=== PATIENT | female | born 2000 | race Caucasian/White ===

== ENCOUNTER 2021-05-20 13:13 | Inpatient (IN) | payer OTHER ==
[~2021-05-20] VITALS: Ht 157.5 cm; Wt 71.2 kg
== END 2021-05-22 11:56 | disposition home or self-care (01) | DRG 807 ==
LOC: OBS/DEL 13:13 → LDR 15:18 → OB/GYN 05-21 00:03
PROVIDERS: ADMIT Student in an Organized Health Care Education/Training Program; ATTEND Student in an Organized Health Care Education/Training Program
PROC: 10E0XZZ Delivery of Products of Conception, External Approach (ICD-10-PCS; principal; 2021-05-20)
PROC: 10907ZC Drainage of Amniotic Fluid, Therapeutic from Products of Conception, Via Natural or Artificial Opening (ICD-10-PCS; 2021-05-20)
PROC: 4A1HXFZ Monitoring of Products of Conception, Cardiac Rhythm, External Approach (ICD-10-PCS; 2021-05-20)
DX: O80 Encounter for full-term uncomplicated delivery (principal); Z37.0 Single live birth; Z3A.38 38 weeks gestation of pregnancy

== ENCOUNTER 2023-04-02 15:07 | Outpatient (CLI) | payer OTHER | END 2023-04-02 17:08 | disposition home or self-care (01) | LOC: PRENATAL 15:07 | PROVIDERS: ATTEND Obstetrics & Gynecology Maternal & Fetal Medicine | DX: O36.80X0 Pregnancy with inconclusive fetal viability, not applicable or unspecified (principal); Z36.82 Encounter for antenatal screening for nuchal translucency; Z36.9 Encounter for antenatal screening, unspecified; Z3A.13 13 weeks gestation of pregnancy ==

== ENCOUNTER 2023-05-29 10:30 | Outpatient (CLI) | payer OTHER | END 2023-05-29 10:31 | disposition home or self-care (01) | LOC: PRENATAL 10:30 | PROVIDERS: ATTEND Obstetrics & Gynecology Maternal & Fetal Medicine | DX: O35.3XX0 Maternal care for (suspected) damage to fetus from viral disease in mother, not applicable or unspecified (principal); O35.9XX0 Maternal care for (suspected) fetal abnormality and damage, unspecified, not applicable or unspecified; O44.00 Complete placenta previa NOS or without hemorrhage, unspecified trimester; Z3A.21 21 weeks gestation of pregnancy ==

== ENCOUNTER 2023-07-18 10:18 | Outpatient (CLI) | payer OTHER | END 2023-07-18 10:20 | disposition home or self-care (01) | LOC: PRENATAL 10:18 | PROVIDERS: ATTEND Obstetrics & Gynecology Maternal & Fetal Medicine | DX: O26.849 Uterine size-date discrepancy, unspecified trimester (principal); O43.90 Unspecified placental disorder, unspecified trimester; Z3A.28 28 weeks gestation of pregnancy ==

== ENCOUNTER 2023-08-28 10:36 | Outpatient (CLI) | payer OTHER | END 2023-08-28 10:37 | disposition home or self-care (01) | LOC: PRENATAL 10:36 | PROVIDERS: ATTEND Obstetrics & Gynecology Maternal & Fetal Medicine | DX: O26.849 Uterine size-date discrepancy, unspecified trimester (principal); O43.90 Unspecified placental disorder, unspecified trimester; Z3A.34 34 weeks gestation of pregnancy ==

== ENCOUNTER 2023-09-20 07:13 | Inpatient (IN) | payer OTHER ==
[~2023-09-20] VITALS: Ht 157.5 cm; Wt 62.1 kg
[2023-09-20] MEDS ORDERED: AMPICILLIN SODIUM 2,000 MG VIAL ONE (07:28)
[2023-09-20] MEDS ORDERED: AMPICILLIN SODIUM 2,000 MG in 0.9 % SODIUM CHLORIDE 100 ML IV SCH ×2 (08:28→14:00)
[2023-09-20] MEDS ORDERED: RINGERS SOLUTION,LACTATED 1,000 ML IV SCH ×2 (08:30→17:15)
[2023-09-20 08:41] LABS: HEMATOCRIT 35.1 % (36.0-45.00); HEMOGLOBIN 12.3 g/dL (12.0-15.00); MEAN CELL VOLUME 87.7 fL (80.00-100.00); MEAN CORPUSCULAR HEMOGLOBIN 30.7 pg (27.00-32.0); PLATELET COUNT 178 K/uL (150-450); RED CELL DISTRIBUTION WIDTH 14.4 % (11.5-14.5)
[2023-09-20 08:50] LABS: PH,URINE 6.5 (5.0-8.0); URINE APPEARANCE Clear; URINE BILIRRUBIN Negative (NEGATIVE); URINE BLOOD Negative; URINE COLOR Yellow; URINE GLUCOSE Negative (NEGATIVE); URINE LEUKOCYTE Negative; URINE NITRATE Negative; URINE PROTEIN Negative (NEGATIVE)
[2023-09-20 08:55] LABS: URINE BACTERIA 458.4 uL (0.0-1933); URINE EPITHELIAL CELLS 27.4 uL (0.0-38.8); URINE WBC 11.1 uL (0.0-23.2)
[2023-09-20 08:59] LABS: INR < 0.93; PARTIAL THROMBOPLASTIN TIME 25.8 SECONDS (22.0-34.0)
[2023-09-20] MEDS ORDERED: OXYTOCIN 500 ML IV SCH (09:00)
[2023-09-20 09:01] LABS: PROTHROMBIN TIME 9.6 SECONDS (9.0-11.5)
[2023-09-20] MEDS ORDERED: OXYTOCIN 20 UNITS/500ML RL PIGGYBAG IV ONE (09:03)
[2023-09-20 09:06] LABS: ALBUMIN 2.9 gm/dL (3.4-5.0); BILIRUBIN TOTAL 0.61 mg/dL (0.3-1.2); CALCIUM 8.7 mg/dL (8.5-10.1); CREATININE SERUM 0.49 mg/dL (0.55-1.02); GFR 155.16; GLOBULINA 3.8 G/DL (2.4-3.5); POTASSIUM 3.66 mEq/L (3.5-5.1); TOTAL PROTEIN 6.7 gm/dL (6.4-8.2)
[2023-09-20 09:13] LABS: URINE RBC 1.8 uL (0.0-20.8)
[2023-09-20] MEDS ORDERED: MEPERIDINE HCL/PF 25 MG/ML VIAL IV ONE (14:02)
[2023-09-20] MEDS ORDERED: PROMETHAZINE HCL 25 MG/ML AMPUL IV ONE (14:02)
[2023-09-20] MEDS ORDERED: PROMETHAZINE HCL 25 MG/ML AMPUL ONE (14:04)
[2023-09-20] MEDS ORDERED: ERYTHROMYCIN BASE 1 GM TUBE OP ONE ×2 (14:35→17:30)
[2023-09-20] MEDS ORDERED: OXYTOCIN 20 UNITS/1000ML RL PIGGYBAG IV ONE (14:35)
[2023-09-20] MEDS ORDERED: CHLORHEXIDINE GLUCONATE 120 ML BOTTLE TOP ONE ×2 (14:35→17:30)
[2023-09-20] MEDS ORDERED: IBUprofen 400 MG TABLET PO PRN (17:15)
[2023-09-20] MEDS ORDERED: OXYTOCIN 1,000 ML IV SCH (17:30)
== END 2023-09-22 13:51 | disposition home or self-care (01) | DRG 807 ==
LOC: LDR 07:13 → OB/GYN 16:13
PROVIDERS: ADMIT Obstetrics & Gynecology; ATTEND Obstetrics & Gynecology
PROC: 10E0XZZ Delivery of Products of Conception, External Approach (ICD-10-PCS; principal; 2023-09-20)
PROC: 4A1HXCZ Monitoring of Products of Conception, Cardiac Rate, External Approach (ICD-10-PCS; 2023-09-20)
DX: O99.824 Streptococcus B carrier state complicating childbirth (principal); Z37.0 Single live birth; Z3A.37 37 weeks gestation of pregnancy; Z20.822 Contact with and (suspected) exposure to COVID-19